=== PATIENT | female | born 1940 | race Caucasian/White ===

== ENCOUNTER 2018-07-06 10:16 | Emergency (ER) | payer MEDICARE ==
[2018-07-06 10:49] VITALS: BP 134/116
--- NOTE | 2018-07-06 11:39 | ED ---
Respiratory - HPI Summary HPI Summary: 78 yr old with URI symptoms for a couple of weeks, and then coughing, and lots of fatigue, no energy. She doesnt' think she has had fever. She feels real tired. She had partial colon resection 5 months ago, and she takes daily oral chemo. - History of Current Complaint Chief Complaint: UCRespiratory Stated Complaint: (POST SURGERY IN JANUARY) FATIGUE Time Seen by Provider: 07/06/18 11:24 Pain Intensity: 0 - Allergy/Home Medications Allergies/Adverse Reactions: Allergies Allergy/AdvReac Type Severity Reaction Status Date / Time No Known Allergies Allergy Verified 07/06/18 10:41 Home Medications: Home Medications Capecitabine (NF) [Xeloda (NF)] 1,000 mg PO Q12H PRN 07/06/18 [History Confirmed 07/06/18] Capecitabine (NF) [Xeloda (NF)] 150 mg PO Q12H PRN 07/06/18 [History Confirmed 07/06/18] NK [No Home Medications Reported] 07/06/18 [History Confirmed 07/06/18] PMH/Surg Hx/FS Hx/Imm Hx GI History: Reports: Other GI Disorders - colon cancer - Cancer History Cancer Type, Location and Year: Colon 2017 (Dr. Vargas @ [facility]) - Surgical History Surgery Procedure, Year, and Place: Partial Colectomy, 01/2018, [place] Infectious Disease History: No Infectious Disease History: Denies: Hx Clostridium Difficile, Hx Hepatitis, Hx Human Immunodeficiency Virus (HIV), Hx of Known/Suspected MRSA, Hx Shingles, Hx Tuberculosis, Hx Known/ Suspected VRE, Hx Known/Suspected VRSA, History Other Infectious Disease, Traveled Outside the in Last 30 Days - Family History Known Family History: Positive: None - Social History Occupation: Retired Lives: With Family Alcohol Use: "not now" Substance Use Type: Reports: None Smoking Status (MU): Former Smoker Type: Cigarettes Amount Used/How Often: ~ 1 ppd Length of Time of Smoking/Using Tobacco: 1 PPD x 62 Years Review of Systems Positive: Fatigue Positive: Nasal Discharge Positive: Shortness Of Breath, Cough, Other - fatigue Positive: Weakness All Other Systems Reviewed And Are Negative: Yes Physical Exam Triage Information Reviewed: Yes Vital Signs On Initial Exam: Initial Vitals Temp Pulse Resp BP Pulse Ox 98.7 F 88 24 134/116 98 07/06/18 10:38 07/06/18 10:38 07/06/18 10:38 07/06/18 10:38 07/06/18 10:38 Vital Signs Reviewed: Yes Appearance: Positive: Well-Appearing Skin: Positive: Warm, Skin Color Reflects Adequate Perfusion Head/Face: Positive: Normal Head/Face Inspection Eyes: Positive: EOMI, ESTEBAN ENT: Positive: Pharynx normal, Nasal congestion, TMs normal Neck: Positive: Nontender Respiratory/Lung Sounds: Positive: Clear to Auscultation, Breath Sounds Present Cardiovascular: Positive: RRR. Negative: Murmur Abdomen Description: Positive: Nontender Musculoskeletal: Positive: Strength/ROM Intact Neurological: Positive: Sensory/Motor Intact, Alert, Oriented to Person Place, Time, CN Intact II-III Psychiatric: Positive: Normal - Stephanie Coma Scale Best Eye Response: 4 - Spontaneous Best Motor Response: 6 - Obeys Commands Best Verbal Response: 5 - Oriented Coma Scale Total: 15 Diagnostics - Vital Signs Vital Signs Temp Pulse Resp BP Pulse Ox 07/06/18 10:38 98.7 F 88 24 134/116 98 - Laboratory Lab Statement: Any lab studies that have been ordered have been reviewed, and results considered in the medical decision making process. Disposition - Course Course Of Treatment: 78 yr old with fatigue and URI and cough symptoms. Lungs clear. She is on chemo. I recommend she go to the ER for further work up, labs. - Diagnoses Provider Diagnoses: Weakness, Cough, Fatigue Discharge - Sign-Out/Discharge Documenting (check all that apply): Patient Departure All imaging exams completed and their final reports reviewed: No Studies - Discharge Plan Condition: Good Disposition: HOME-RECOMMEND TO ED Patient Education Materials: Weakness (ED), Hypertension (ED) Referrals: No Primary Care Phys,NOPCP [Primary Care Provider] - Additional Instructions: You should go to the ER now for further evaluation. - Billing Disposition and Condition Condition: GOOD Disposition: Home-Recommend to ED
== END 2018-07-06 11:43 | disposition home health service (06) ==
LOC: UCCORT 10:16
DX: R53.1 Weakness (principal); R05 Cough; R53.83 Other fatigue; Z85.038 Personal history of other malignant neoplasm of large intestine; K63.89 Other specified diseases of intestine; Z87.891 Personal history of nicotine dependence
CPT/HCPCS: 99212; G0463

== ENCOUNTER → 2018-10-05 09:28 | Day surgery (SDC) | payer MEDICARE ==
[~2018-10-05 09:28] MED LIST: Buffered Lidocaine 1% SYRIN* 1 ML/SYRINGE INTRADERM ONE; Bupivacaine 0.25% SDV PF* 10 ML VIAL INJ ONE; Dexamethasone TAB* 4 MG ONE; Dexamethasone TAB* 4 MG PO ONE; DiMENhydriNATE IV* 50 MG/ML VIAL IV PUSH PRN; Famotidine IV* 10 MG/ML 2 ML (20 mg) IV ONE; Famotidine IV* 10 MG/ML 2 ML (20 mg) ONE; KETAMINE HCL* 50 MG/ML 10 ML VIAL ONE; Lactated Ringers 1000 ML Bag* 1,000 ML IV SCH; Midazolam* 1 MG/ML 2 ML VIAL (2 MG) ONE; Naloxone* 0.4 MG/ML 1 ML VIAL IV PRN; Ondansetron ODT TAB* 4 MG ONE; Ondansetron TAB* 4 MG PO ONE; PROCHLORPERAZINE INJ 5 MG/ML 2 ML VIAL IV PRN; Propofol* 10 MG/ML 20 ML BTL ONE; ceFAZolin 2 GM PREMIX in ORs 2 GM/50 ML BAG IVPB ONE; fentaNYL* 50 MCG/ML 2 ML VIAL (100 MCG VIAL) IV PRN; fentaNYL* 50 MCG/ML 2 ML VIAL (100 MCG VIAL) ONE; oxyCODONE/Acetamin 5/325 MG* TAB PO PRN
[2018-10-05 11:56] VITALS: BP 150/74
--- NOTE | 2018-10-05 20:52 | OP ---
DATE OF OPERATION: 10/05/18 - [facility] DATE OF : 36 SURGEON: Chadd Garcia MD PRE-OP DIAGNOSIS: Lung cancer. POST-OP DIAGNOSIS: Lung cancer. OPERATIVE PROCEDURE: Placement of left subclavian approach PowerPort. INDICATIONS FOR PROCEDURE: Requiring PowerPort for chemotherapy and blood draws for cancer. Risks included but not limited to bleeding, infection, pneumothorax, injury to heart and other chest structures explained. She seemed understanding, agreed to the procedure. Consent was signed and all questions were answered. DESCRIPTION OF PROCEDURE: In the operating room, preoperative antibiotics were given. The left chest was prepped and draped in sterile fashion. She was placed in the Trendelenburg position. Time-out was performed. The skin was anesthetized with plain lidocaine. A needle was placed in the left subclavian vein and using a wire and Seldinger technique, the wire was passed into the superior vena cava, checked by fluoroscopy. The tract was dilated. A split sheath was placed over the wire. The wire was removed. The catheter was advanced through the split sheath and the split sheath was removed. Fluoroscopy showed the catheter in good position. The catheter was tunneled under the skin to a subcutaneous pocket made in the left chest and connected to the Mediport. It easily withdrew blood and flushed heparinized saline. The skin was closed with Monocryl and glue. She tolerated the procedure well and was taken to Recovery in stable condition. [id number]/CPS #: [id number] MTDD
== END | disposition home or self-care (01) ==
LOC: OR 09:28
PROVIDERS: ATTEND Surgery
DX: C78.00 Secondary malignant neoplasm of unspecified lung (principal); C18.4 Malignant neoplasm of transverse colon; E78.5 Hyperlipidemia, unspecified; Z87.891 Personal history of nicotine dependence
CPT/HCPCS: 71045; 76000; A9270-GY; C1788; J0690; J1642; J2250; J2704; J3010; J3490; J8540